=== PATIENT | female | born 1955 | race African-American/Black ===

== ENCOUNTER 2019-12-11 20:53 | Inpatient (IN) | payer MEDICARE ==
[~2019-12-11] VITALS: Ht 167.6 cm; Wt 100.0 kg
--- NOTE | 2019-12-11 19:30 | NUR ---
Telemetry admit from ER ABDON SMITH admitted to unit.Patient oriented to MUKUL CRAVEN RN primary RN, unit, room, bed, and unit policies regarding patient care and visiting hours.MD avlentin paged. Awaiting MD admit orders. Patient weighed by bedscale and encouraged to call if they need something. All questions and concerns addressed, patient verbalized understanding. fall precautions in place. call light within reach
--- NOTE | 2019-12-11 20:45 | NUR ---
new admit orders received from MD valentin. will carry out.
[2019-12-11] MEDS ORDERED: ONDANSETRON HCL 4 MG/2 ML VIAL IV PRN (21:15)
[2019-12-11 22:00] VITALS: BP 146/86
[2019-12-11] MEDS: MORPHINE SULF INJ 2 MG/ML SYRINGE 1ML IV PRN (23:50)
--- NOTE | 2019-12-11 23:50 | NUR ---
pain/ 9/10 generalized aching pain patient medicated per md order
--- NOTE | 2019-12-12 01:15 | NUR ---
unable to obtain home medication will endorse care to dayshift rn
[2019-12-12 05:00] VITALS: BP 151/90
[2019-12-12] MEDS: MORPHINE SULF INJ 2 MG/ML SYRINGE 1ML IV PRN ×2 (06:38→20:23)
--- NOTE | 2019-12-12 06:38 | NUR ---
pain 9/10 to lower back. patient medicated per md order
[2019-12-12 07:01] LABS: Basophils # (auto) 0 10 ^3/uL (0-0.2); Eosinophils # (auto) 0.2 10 ^3/uL (0-0.8); Lymphocytes # (auto) 1.4 10 ^3/uL (0.4-5.4); Lymphocytes % (auto) 24.4 % (10.0-50.0); Monocytes # (auto) 0.7 10 ^3/uL (0-1.3); Neutrophils # (auto) 3.5 10 ^3/uL (1.6-8.6)
[2019-12-12 07:03] LABS: Basophils % (auto) 0.4 % (0.0-2.0); Eosinophils % (auto) 3.2 % (0.0-7.0); Hematocrit 24.5 % (36.0-46.0); Mean Corpuscular Hemoglobin 27.4 pg (28.0-32.0); Mean Corpuscular Hgb Conc. 32.8 g/dL (32.0-36.0); Mean Corpuscular Volume 83.6 fL (80.0-100.0); Monocytes % (auto) 11.7 % (0.0-12.0); Neutrophils % (auto) 60.3 % (37.0-80.0); Nucleated Red Blood Cells % 0.7 %; Platelet Count (auto) 254 10^3/uL (140-450); Red Blood Cells 2.93 10^6/uL (4.0-5.20); Red Cell Distribution Width 14.5 % (11.8-14.3); White Blood Cell 5.8 10^3/uL (4.4-10.8)
--- NOTE | 2019-12-12 07:26 | NUR ---
report given to dayshift rn patient denies sob distress or pain
[2019-12-12 07:29] LABS: Potassium 3.5 mmol/L (3.5-5.1)
[2019-12-12 07:50] LABS: Albumin 2.3 g/dL (3.4-5.0); BUN/Creatinine Ratio 6.7; Bilirubin, Total 0.4 mg/dL (0.2-1.0); Calcium 8.4 mg/dL (8.5-10.1); Total Protein 5.7 g/dL (6.4-8.2)
[2019-12-12 09:00] VITALS: BP 168/85
--- NOTE | 2019-12-12 09:30 | NUR ---
pt seen by Dr. Logan received order for stat EKG.
--- NOTE | 2019-12-12 10:14 | NUR ---
pt seen by Dr. Guevara, received order to continue medications he check in the list of medications from [facility].
[2019-12-12] MEDS ORDERED: NITROGLYCERIN 0.4 MG SL TAB SL PRN (10:30)
[2019-12-12] MEDS ORDERED: METOPROLOL TARTRATE 50 MG TAB PO ONE (10:30)
[2019-12-12] MEDS ORDERED: LABETALOL HCL 5 MG/ML 4ML SYRINGE IV PRN (10:30)
[2019-12-12] MEDS ORDERED: ASPirin 81 mg TAB PO ONE (10:30)
[2019-12-12] MEDS ORDERED: ONDANSETRON HCL 4 MG/2 ML VIAL IV PRN (10:30)
[2019-12-12] MEDS ORDERED: LOSARTAN POTASSIUM 50 MG TAB PO ONE (10:30)
[2019-12-12] MEDS ORDERED: SENNA 8.6 MG TAB PO PRN (10:30)
[2019-12-12] MEDS ORDERED: ISOSORBIDE MONONITRATE ER 60 MG TAB PO ONE (10:30)
[2019-12-12] MEDS ORDERED: DEXTROSE (50%) 50ML SYRG IV PRN (10:30)
[2019-12-12] MEDS ORDERED: LACTULOSE 20Gm/30ML SOLN PO PRN (11:00)
[2019-12-12] MEDS: InsuLIN REG 1unit/0.01ml Soln (100units/ml) SC SCH ×3 (11:30→22:02)
[2019-12-12 13:00] VITALS: BP 161/84
[2019-12-12] MEDS: ACCU-CHEK COMFORT CURVE STRIP VI SCH ×3 (13:20→21:55)
[2019-12-12 14:02] LABS: % Iron Saturation 12.5 % (15-50)
[2019-12-12] MEDS ORDERED: IOHEXOL 300 MG/ML 100ML BOTTLE IJ ONE (14:38)
[2019-12-12 15:58] LABS: Ferritin 49.9 ng/mL (10-322)
[2019-12-12 16:33] VITALS: BP 152/76
--- NOTE | 2019-12-12 19:25 | NUR ---
Received report from the Day Shift RN. Radford. Initial assessment done. Pt. on bed rest, alert, awake, oriented x 4, in Room Air, breathing regular and unlabored, denies chest pain or chest discomfort. SR @ the 80's @ the monitor Tele # 34. Pt. on bedrest only, unable to ambulate for years now, with Right eye blindness, obesity and needs mod. to max. assist with ADL's. Generally skin intact with dryness of skin @ the lower extremities. Pt. provided bedside nsg. care. SR @ the monitor # 34. Keep pt. safe and slate splitting supervisor bed. Call-light within pt.'s reach.
--- NOTE | 2019-12-12 19:41 | NUR ---
SR @ 85 @ the monitor Tele # 34. Pt. denies chest pain or denies chest discomfort.
--- NOTE | 2019-12-12 20:23 | NUR ---
Pt. verbalized severe pain @ the Right side of the abdomen radiating to the right side of the back area about 9/10 scale, throbbing and stabbing in nature. Pt. given Morphine Sulfate 2 mg. IV for severe pain @ 2022 pm. Keep pt. informed about the benefits of the pain reliever to control pain for pain management.
--- NOTE | 2019-12-12 20:53 | NUR ---
Pt. pain reduced/decreased from 9/10 to 2/10 scale @ this time. Pt. verbalized that she feels better now s/p 30 mins. and able to tolerate pain of 2/10 scale. Pt. is resting, calm and quiet @ this time.
[2019-12-12] MEDS: levETIRAcetam 500 MG TAB PO SCH (21:48)
[2019-12-12] MEDS: METOPROLOL TARTRATE 50 MG TAB PO SCH (21:49)
--- NOTE | 2019-12-12 21:49 | NUR ---
Meds. as scheduled given @ this time. Pt. made aware of the mechanism of actions of these meds. Pt. verbalized understanding.
--- NOTE | 2019-12-12 21:53 | NUR ---
Accucheck taken with result of BS = 155 , see s/s coverage for Regular Human Insulin.
[2019-12-12 22:00] VITALS: BP 148/66
--- NOTE | 2019-12-12 22:02 | NUR ---
Pt. given 2 units of Regular Human Insulin SQ @ the [facility] for BS = 155 , see/refer to EMAR.
--- NOTE | 2019-12-12 22:30 | NUR ---
Pt.'s son called and was able to give consent for the Left Heart Cath. Procedure to be done tomorrow 12/13/[address] Logan (Cardiology). Pt.'s son name Wilton Barroso gave okay or consent for the Left Heart Cath Procedure by Phone, witnessed and signed by 2 RN's, Iza Xie RN. and Kandi Cardoso RN. See Consent and Pre-Op Checklist @ the pt.'s Chart.
--- NOTE | 2019-12-12 23:50 | NUR ---
Pt. provided health teachings about on NPO Starting MN and post MN for the Left Heart Cath. Procedure to be done tomorrow 12/13/2019. Pt. verbalized understanding.
--- NOTE | 2019-12-13 | NUR ---
Pt. started to be on NPO @ Midnight for the left Heart Cath. 12/13/[address] Logan - Cardiology.
--- NOTE | 2019-12-13 00:10 | NUR ---
Pt. is resting and sleeping now. Keep pt. safe and insurance administrator bed. Pt. is NSR @ the Telemetry # 34 @ the 80's to 90's.
--- NOTE | 2019-12-13 02:00 | NUR ---
Pt. resting and sleeping undisturbed, kept. on NPO since MN.
--- NOTE | 2019-12-13 04:30 | NUR ---
Pre-op Checklist for the Left Heart Cath procedure to be done today 12/13/2019 started @ 0430 AM. - See @ the Pt.'s Chart.
[2019-12-13 05:00] VITALS: BP 134/72
--- NOTE | 2019-12-13 05:50 | NUR ---
Pt. kept on NPO since MN. Pt. aware of the NPO for Left Heart Cath today.
--- NOTE | 2019-12-13 06:48 | NUR ---
Pt. accucheck done @ 0648 Am. with result of BS = 85 , No coverage for Regular Human Insulin needed. Pt. made aware of the blood sugar result.
[2019-12-13] MEDS: ACCU-CHEK COMFORT CURVE STRIP VI SCH ×4 (06:50→22:09)
[2019-12-13] MEDS: InsuLIN REG 1unit/0.01ml Soln (100units/ml) SC SCH ×4 (06:50→22:09)
[2019-12-13] MEDS ORDERED: LIDOCAINE 2%HCL (LOCAL ANESTH.) INJ 20ML MDV ONE (07:15)
[2019-12-13] MEDS ORDERED: MIDAZOLAM HCL 1MG/1ML-2 ML VIAL ONE (07:33)
[2019-12-13] MEDS ORDERED: fentaNYL CITRATE 100 MCG/2 ML VL ONE (07:33)
[2019-12-13] MEDS ORDERED: VERAPAMIL 2.5MG/ML INJ 2ML VIAL IV ONE (07:33)
[2019-12-13] MEDS ORDERED: SODIUM CHL 0.9% 0 ML ONE (07:33)
--- NOTE | 2019-12-13 07:40 | NUR ---
OPENING SHIFT NOTE ASSUMED CARE OF PATIENT FROM CARROT BUNCHER NORBERT GALE. PATIENT IS IN MANAGER HARDWARE RIGHT NOW.
[2019-12-13] MEDS ORDERED: HEPARIN SODIUM (PORCINE) 5000 UNITS/ML 1ML VIAL ONE (07:41)
--- NOTE | 2019-12-13 09:04 | NUR ---
RECEIVED REPORT FROM ABAD RANDLE RN
--- NOTE | 2019-12-13 09:30 | NUR ---
Report received from NORBERT MELGOZA. SARAHABDON brought to bed 219 A following Left Heart Cardiac catheterization, on living specialist and portable oxygen. Patient transfered to unit bed, connected to exercise equipment repair technician #[id number] and oxygen. Catheterization site assessed for any bleeding, redness or swelling. Vascband device in place. Pedal pulses on affected leg assessed for positive tissue perfusion. Patient instructed on need to notify staff immediately if any pain, burning or wetness to site, and any lower back pain. Patient educated on new cardiac medications. All questions and concerns addressed, patient verbalized understanding of all education and instruction.
--- NOTE | 2019-12-13 09:30 | NUR ---
MD SHANKS AT BEDSIDE PER MD PATIENT IS CLEARED FOR DISCHARGE. WILL INFORM MD MCLEAN
[2019-12-13 09:33] VITALS: BP 149/65
[2019-12-13] MEDS: ASPirin 81 mg TAB PO SCH (09:58)
[2019-12-13] MEDS: levETIRAcetam 500 MG TAB PO SCH ×2 (09:58→22:07)
[2019-12-13] MEDS: FAMOTIDINE 20 MG TAB PO SCH (09:58)
[2019-12-13] MEDS: LOSARTAN POTASSIUM 50 MG TAB PO SCH (09:58)
[2019-12-13] MEDS: ATORVASTATIN 20 MG TAB PO SCH (09:58)
[2019-12-13] MEDS: METOPROLOL TARTRATE 50 MG TAB PO SCH ×2 (09:58→22:08)
[2019-12-13] MEDS: CLOPIDOGREL BISULFATE 75 MG TAB PO SCH (09:59)
[2019-12-13] MEDS: ISOSORBIDE MONONITRATE ER 60 MG TAB PO SCH (09:59)
--- NOTE | 2019-12-13 10:00 | NUR ---
DEFLATED VASCBAND 2ML. NO BLEEDING NOTED. WILL CONTINUE TO MONITOR.
[2019-12-13] MEDS: MORPHINE SULF INJ 2 MG/ML SYRINGE 1ML IV PRN ×2 (10:12→20:38)
[2019-12-13] MEDS: SODIUM CHLORIDE 0.9% 1,000 ML IV SCH ×2 (10:13→20:07)
--- NOTE | 2019-12-13 10:15 | NUR ---
DEFLATED VASCBAND 2ML. NO BLEEDING NOTED. WILL CONTINUE TO MONITOR.
--- NOTE | 2019-12-13 10:20 | NUR ---
MD DOMINGUEZ AT BEDSIDE PER MD PATIENT IS CLEARED FOR DISCHARGE
[2019-12-13 10:27] LABS: Basophils # (auto) 0 10 ^3/uL (0-0.2); Eosinophils # (auto) 0.3 10 ^3/uL (0-0.8); Monocytes # (auto) 0.6 10 ^3/uL (0-1.3); Red Cell Distribution Width 14.9 % (11.8-14.3)
--- NOTE | 2019-12-13 10:30 | NUR ---
DEFLATED VASCBAND 2ML. NO BLEEDING NOTED. WILL CONTINUE TO MONITOR.
[2019-12-13 10:31] LABS: Basophils % (auto) 0.5 % (0.0-2.0); Eosinophils % (auto) 5.2 % (0.0-7.0); Hemoglobin 8.8 g/dL (12.2-16.2); Lymphocytes # (auto) 1.7 10 ^3/uL (0.4-5.4); Lymphocytes % (auto) 26.4 % (10.0-50.0); Mean Corpuscular Hemoglobin 27.2 pg (28.0-32.0); Mean Corpuscular Hgb Conc. 32.7 g/dL (32.0-36.0); Mean Corpuscular Volume 83.4 fL (80.0-100.0); Monocytes % (auto) 9.2 % (0.0-12.0); Neutrophils # (auto) 3.9 10 ^3/uL (1.6-8.6); Neutrophils % (auto) 58.7 % (37.0-80.0); Nucleated Red Blood Cells % 0.8 %; Platelet Count (auto) 265 10^3/uL (140-450); Red Blood Cells 3.23 10^6/uL (4.0-5.20); White Blood Cell 6.6 10^3/uL (4.4-10.8)
[2019-12-13 10:40] LABS: Calcium 8.7 mg/dL (8.5-10.1)
--- NOTE | 2019-12-13 10:45 | NUR ---
DEFLATED VASCBAND 2ML. NO BLEEDING NOTED. WILL CONTINUE TO MONITOR.
[2019-12-13 10:54] LABS: INR 1.05 (0.9-1.15); Partial Thromboplastin Time 40.2 sec (23.0-31.2)
--- NOTE | 2019-12-13 11:00 | NUR ---
DEFLATED VASCBAND 2ML. NO BLEEDING NOTED. WILL CONTINUE TO MONITOR.
--- NOTE | 2019-12-13 11:15 | NUR ---
DEFLATED VASCBAND 2ML. NO BLEEDING NOTED. WILL CONTINUE TO MONITOR. VASCBAND TAKEN OFF AND GAUZE AND TEGADERM APPLIED TO SITE
[2019-12-13 12:58] VITALS: BP 139/67
[2019-12-13 17:00] VITALS: BP 130/62
[2019-12-13] MEDS: IRON SUCROSE COMPLEX 200 MG in SODIUM CHL 0.9% 100 ML IV SCH (17:31)
--- NOTE | 2019-12-13 18:44 | NUR ---
CLOSING SHIFT NOTE PATIENT HAS NO S/S OF DISTRESS/SOB OR PAIN AT THIS TIME. WILL ENDORSE CARE TO BOILERMAKER HELPER RN.
--- NOTE | 2019-12-13 19:30 | NUR ---
Opening Shift Note Assumed care of patient, awake and alert. No S/S of distress/SOB. Pain management options discussed with the patient. Instructed on POC and to call for assist PRN, will continue to monitor for changes Q1hr and PRN.
[2019-12-13 20:00] VITALS: BP 139/84
[2019-12-13 21:53] VITALS: BP 139/84
[2019-12-14 04:47] VITALS: BP 143/73
[2019-12-14] MEDS: SODIUM CHLORIDE 0.9% 1,000 ML IV SCH (06:23)
[2019-12-14] MEDS: ACCU-CHEK COMFORT CURVE STRIP VI SCH ×3 (06:36→17:10)
[2019-12-14] MEDS: InsuLIN REG 1unit/0.01ml Soln (100units/ml) SC SCH ×3 (06:41→17:12)
[2019-12-14] MEDS: MORPHINE SULF INJ 2 MG/ML SYRINGE 1ML IV PRN (07:35)
[2019-12-14 09:00] VITALS: BP 155/75
[2019-12-14] MEDS: ASPirin 81 mg TAB PO SCH (09:54)
[2019-12-14] MEDS: LOSARTAN POTASSIUM 50 MG TAB PO SCH (09:55)
[2019-12-14] MEDS: ISOSORBIDE MONONITRATE ER 60 MG TAB PO SCH (09:55)
[2019-12-14] MEDS: levETIRAcetam 500 MG TAB PO SCH (09:56)
[2019-12-14] MEDS: ATORVASTATIN 20 MG TAB PO SCH (09:57)
[2019-12-14] MEDS: METOPROLOL TARTRATE 50 MG TAB PO SCH (09:58)
[2019-12-14] MEDS: FAMOTIDINE 20 MG TAB PO SCH (09:58)
[2019-12-14] MEDS: CLOPIDOGREL BISULFATE 75 MG TAB PO SCH (09:59)
[2019-12-14] MEDS ORDERED: HYDROcodone-ACET 10/325MG TAB PO PRN (10:15)
--- NOTE | 2019-12-14 11:59 | NUR ---
Est energy needs 8989-5598 kcal ( 14-18kcal/kg BW 100kg) Est protein needs 59-77g (1-1.3g/kg IBW 59.1kg) Will reassess prn. Addendum: 12/14/19 at [address] Amended: Links added.
[2019-12-14] MEDS: IRON SUCROSE COMPLEX 200 MG in SODIUM CHL 0.9% 100 ML IV SCH (12:11)
[2019-12-14 13:00] VITALS: BP 129/75
[2019-12-14 17:00] VITALS: BP 131/64
[2019-12-14 17:45] VITALS: BP 135/74
--- NOTE | 2019-12-14 18:51 | NUR ---
Central line removed, cathether intact, dressing applied, no bleeding noted ,tele box removed and sent back, patient awaiting son to picker/puller.
--- NOTE | 2019-12-14 19:18 | NUR ---
Discharge instructions given as ordered. Encourage to follow up with PMD as instructed. All questions and concerns addressed. Patient verbalized understanding. Medication reconciliation form completed and copy given to patient. Home medications held in Pharmacy returned to patient. Central line removed with catheter intact, pressure dressing applied, mejia catheter removed. Telemetry unit returned to ICU. Patient taken to vehicle via wheelchair with all personal belongings, accompanied by staff to family member. No distress noted at time of departure.
== END 2019-12-14 19:08 | disposition home or self-care (01) | DRG 281 ==
LOC: TELE-CENTR 20:53
PROVIDERS: ADMIT Internal Medicine; ATTEND Internal Medicine
PROC: 4A023N7 Measurement of Cardiac Sampling and Pressure, Left Heart, Percutaneous Approach (ICD-10-PCS; principal; 2019-12-13)
PROC: B211YZZ Fluoroscopy of Multiple Coronary Arteries using Other Contrast (ICD-10-PCS; 2019-12-13)
PROC: B215YZZ Fluoroscopy of Left Heart using Other Contrast (ICD-10-PCS; 2019-12-13)
PROC: B213YZZ Fluoroscopy of Multiple Coronary Artery Bypass Grafts using Other Contrast (ICD-10-PCS; 2019-12-13)
PROC: B218YZZ Fluoroscopy of Left Internal Mammary Bypass Graft using Other Contrast (ICD-10-PCS; 2019-12-13)
DX: I21.4 Non-ST elevation (NSTEMI) myocardial infarction (principal); I69.351 Hemiplegia and hemiparesis following cerebral infarction affecting right dominant side; I50.22 Chronic systolic (congestive) heart failure; E44.0 Moderate protein-calorie malnutrition; D64.9 Anemia, unspecified; K59.00 Constipation, unspecified; I25.10 Atherosclerotic heart disease of native coronary artery without angina pectoris; E11.40 Type 2 diabetes mellitus with diabetic neuropathy, unspecified; E11.649 Type 2 diabetes mellitus with hypoglycemia without coma; G40.909 Epilepsy, unspecified, not intractable, without status epilepticus; E78.5 Hyperlipidemia, unspecified; H54.61 Unqualified visual loss, right eye, normal vision left eye; I11.0 Hypertensive heart disease with heart failure; E66.3 Overweight; J44.9 Chronic obstructive pulmonary disease, unspecified; M19.90 Unspecified osteoarthritis, unspecified site; E61.1 Iron deficiency; Z80.3 Family history of malignant neoplasm of breast; Z83.3 Family history of diabetes mellitus; Z95.1 Presence of aortocoronary bypass graft; Z87.891 Personal history of nicotine dependence; I25.2 Old myocardial infarction; Z79.899 Other long term (current) drug therapy
CPT/HCPCS: 36415; 74177; 80048; 80053; 82270; 82607; 82728; 82962; 83540; 83550; 83615; 84484; 85025; 85045; 85610; 85730; 86880; 93005; 93459; 99152; 99153; G0378; J1756; J1815; J2250